=== PATIENT | male | born 1960 | race African-American/Black ===

== ENCOUNTER 2016-11-13 18:18 | Emergency (ER) | payer MEDICAID, OTHER ==
[~2016-11-13] VITALS: Ht 172.7 cm; Wt 75.0 kg
[2016-11-13] MEDS ORDERED: IBUPROFEN 600MG TABLET PO ONE (18:45)
[2016-11-13 20:31] VITALS: BP 135/79
== END 2016-11-13 20:48 | disposition home or self-care (01) ==
LOC: ER 18:38
DX: S70.02XA Contusion of left hip, initial encounter (principal); M19.90 Unspecified osteoarthritis, unspecified site; Z72.0 Tobacco use; W19.XXXA Unspecified fall, initial encounter; Y93.89 Activity, other specified; Y92.89 Other specified places as the place of occurrence of the external cause; Y99.8 Other external cause status
CPT/HCPCS: 73502; 99284